=== PATIENT | male | born 1990 | race Caucasian/White ===

== ENCOUNTER 2017-01-30 17:08 | Emergency (ER) | payer SELFPAY ==
[~2017-01-30] VITALS: Ht 180.3 cm; Wt 72.6 kg
[2017-01-30] MEDS ORDERED: AMOX500C2 PO (17:22)
[2017-01-30] MEDS ORDERED: NAPR500T PO (17:22)
--- NOTE | 2017-01-30 17:22 | ED EENT ---
History of Present Illness General Stated Complaint: L SIDE DENTAL PAIN Source: patient Exam Limitations: no limitations History of Present Illness Time seen by provider: 17:19 Initial Comments To ER with left-sided upper dental pain at the site of one of his eroded teeth. States that he is from [facility] and is here looking for work. He did call [facility] today and has an appointment set up for this Monday the third with them. Timing/Duration: gradual Severity: moderate Location: mouth, dental Associated Symptoms: denies symptoms Allergies and Home Medications Allergies Coded Allergies: cephalexin (Verified Allergy, Unknown, 01/30/17) Review of Systems Constitutional: see HPI Eyes: No Symptoms Reported Ears: No Symptoms Reported Nose: no symptoms reported Mouth: see HPI Throat: no symptoms reported Respiratory: no symptoms reported Cardiovascular: no symptoms reported Musculoskeletal: no symptoms reported Skin: no symptoms reported Past Lbtqfjw-Lmafvn-Jznjur Hx Patient Social History Recent Foreign Travel: No Contact w/Someone Who Travel: No Physical Exam General Appearance: WD/WN, no apparent distress Eyes: bilateral eye EOMI, bilateral eye PERRL, bilateral eye normal inspection Ears: bilateral ear TM normal, bilateral ear auricle normal, bilateral ear canal normal Mouth/Throat: normal mouth inspection, pharynx normal, other (multiple eroded teeth but no fluctuant abscess) Neck: non-tender, full range of motion, No lymphadenopathy (R), No lymphadenopathy (L) Respiratory: no respiratory distress, no accessory muscle use Gastrointestinal: normal bowel sounds, non tender, soft Neurologic/Psychiatric: alert, normal mood/affect, oriented x 3 Skin: normal color, warm/dry Progress/Results/Core Measures Results/Orders My Orders Orders - RAGHAVENDRA VILLEGAS APRN Lidocaine 2% Viscous 15 Ml (Xylocaine Vi (01/30/17 17:30) Departure Impression Impression: Primary Impression: Dental caries Additional Impression: Pain, dental Disposition: HOME, SELF-CARE Condition: Stable Departure-Patient Inst. Decision time for Depature: 17:21 Referrals: NO,LOCAL PHYSICIAN (PCP/Family) Primary Care Physician Patient Instructions: Dental Pain Add. Discharge Instructions: 1. Keep your appointment with the dentist this Monday 2. Antibiotics and pain medication as directed until then. Scripts Amoxicillin (Amoxicillin) 500 Mg Capsule 500 MG PO TID, #21 CAP Prov: RAGHAVENDRA VILLEGAS APRN 01/30/17 Naproxen (Naprosyn) 500 Mg Tablet 500 MG PO BID Y for PAIN-MODERATE, #30 TAB Prov: RAGHAVENDRA VILLEGAS APRN 01/30/17 Images Mouth/Nose 1 - Caries, Tenderness RAGHAVENDRA VILLEGAS APRN January 30, 2017 17:22
[2017-01-30 17:27] VITALS: BP 133/83
[2017-01-30] MEDS ORDERED: LIDOCAINE 2% VISCOUS 15 ML UDC PO ONE (17:30)
== END 2017-01-30 17:27 | disposition home or self-care (01) ==
LOC: ER 17:12
DX: K02.9 Dental caries, unspecified (principal)
CPT/HCPCS: 99282

== ENCOUNTER 2017-02-13 00:01 | Emergency (ER) | payer SELFPAY ==
[~2017-02-13] VITALS: Ht 180.3 cm; Wt 72.6 kg
[~2017-02-13 00:01] MED LIST: AMOX500C2 PO; NAPR500T PO
--- NOTE | 2017-02-13 00:34 | ED Lower Extremity ---
General Chief Complaint: Lower Extremity Stated Complaint: RESTLESS LEG Nursing Triage Note: patient reports the past 2 nights he hasn't been able to sleep as his legs have been restless and tingling. patient reports that he is also out of his tramadol and he moved here 2 weeks ago from [place] [facility] Sepsis Screen: No Definite Risk Source: patient History of Present Illness Time seen by provider: 00:15 Initial Comments C/O "RESTLESS LEGS" X 2 NIGHTS AND CANT' SLEEP BECAUSE OF IT NO PAIN OR CRAMPING IN LEGS NO SWELLING IN LEGS STATES LEGS AND FEET OCCASIONALLY TINGLE, BUT NO MOTOR DEFICITS NO HISTORY OF SIMILAR PT STATES HE HAS BEEN TAKING TRAMADOL FOR HIS "CHRONIC BACK PAIN" BUT RAN OUT 3 DAYS AGO PT STATES HE JUST MOVED HERE 2 WEEKS AGO FROM [place], [place] WAS IN THIS ER 01/30/17 FOR DENTAL CARIES--GIVEN RX FOR AMOXIL AND NAPROXEN PT STATES HE CAME TO ER ALONE--HOWEVER, IT IS DISCOVERED THAT A FEMALE, ELMA STEARNS, WHO HAS THE SAME ADDRESS PT 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--CHECKED IN SHORTLY BEFORE THIS PT DID, AND SHE HAD C/O "ANXIETY" Allergies and Home Medications Allergies Coded Allergies: cephalexin (Verified Allergy, Unknown, 01/30/17) Home Medications No Active Prescriptions or Reported Meds Constitutional: no symptoms reported EENTM: no symptoms reported Respiratory: no symptoms reported Cardiovascular: no symptoms reported Gastrointestinal: no symptoms reported Genitourinary: no symptoms reported Musculoskeletal: see HPI Skin: no symptoms reported Psychiatric/Neurological: See HPI Past Urqpqyz-Fuxczt-Hutzdy Hx Patient Social History Alcohol Use: Denies Use Recreational Drug Use: No Smoking Status: Current Everyday Smoker Type Used: Cigarettes 2nd Hand Smoke Exposure: Yes Recent Foreign Travel: No Contact w/Someone Who Travel: No Recent Infectious Disease Expo: No Seasonal Allergies Seasonal Allergies: No Surgeries HX Surgeries: Yes (LEFT WRIST FX/ORIF; LEFT TESTICLE TORSION AND/OR VARICOCOELE REPAIR; BMT'S) Surgeries: Ear Surgery, Orthopedic, Testicular Respiratory Hx Respiratory Disorders: No Cardiovascular Hx Cardiac Disorders: No Neurological Hx Neurological Disorders: No Genitourinary Hx Genitourinary Disorders: No Gastrointestinal Hx Gastrointestinal Disorders: No Musculoskeletal Hx Musculoskeletal Disorders: Yes (PT STATES HE HAS "CHRONIC BACK PAIN" ) Musculoskeletal Disorders: Chronic Back Pain Endocrine Hx Endocrine Disorders: No HEENT HX ENT Disorders: Yes (DENTAL CARIES; 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 Cancer Hx Cancer: No Psychosocial Hx Psychiatric Problems: No Integumentary HX Skin/Integumentary Disorder: No Blood Transfusions Hx Blood Disorders: No Physical Exam Vital Signs Vital Sign - Last 12Hours 02/13/17 00:09 Temp 98.2 Pulse 92 Resp 18 B/P (MAP) 154/83 Pulse Ox 98 Capillary Refill : Less Than 3 Seconds General Appearance: WD/WN, no apparent distress, other (PT SITTING STILL ON ER CART) HEENT: PERRL/EOMI, other (DENTAL CARIES; TM'S SCLEROTIC) Neck: non-tender, full range of motion, supple, normal inspection Cardiovascular: normal peripheral pulses, regular rate, rhythm, no murmur Respiratory: normal breath sounds, no respiratory distress, no accessory muscle use Gastrointestinal: soft Legs: bilateral leg non-tender, bilateral leg normal inspection, bilateral leg normal range of motion Knees: bilateral knee normal inspection Ankles: bilateral ankle normal inspection Feet: bilateral foot normal inspection Reflexes: 2+ knee (R), 2+ knee (L) Neurologic/Tendon: normal sensation, normal motor functions, normal tendon functions 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 Referrals: NO,LOCAL PHYSICIAN (PCP/Family) Primary Care Physician Patient Instructions: Restless Legs Syndrome (DC) Add. Discharge Instructions: LOTS OF CLEAR LIQUIDS--WATER, BROTH, JELLO, GATORADE TYLENOL AND MOTRIN NEEDED FOR PAIN FOLLOW UP WITH DRAddison OF CHOICE IN 3-4 DAYS IF NO BETTER, AND ESTABLISH WITH LOCAL DR THIS WEEK All discharge instructions reviewed with patient and/or family. Voiced understanding. Scripts No Active Prescriptions or Reported Meds ADEILNA VANN DO February 13, 2017 00:34
[2017-02-13 00:38] VITALS: BP 154/83
[2017-02-13] MEDS ORDERED: hydrOXYzine (VISTARIL) 25 MG CAP PO ONE (00:45)
== END 2017-02-13 00:38 | disposition home or self-care (01) ==
LOC: EDUNIT# 00:01 → ER 00:05
DX: G25.81 Restless legs syndrome (principal); M54.5 Low back pain; F17.210 Nicotine dependence, cigarettes, uncomplicated; Z79.899 Other long term (current) drug therapy
CPT/HCPCS: 99283

== ENCOUNTER 2017-02-15 13:08 | Emergency (ER) | payer SELFPAY ==
[~2017-02-15] VITALS: Ht 172.7 cm; Wt 70.8 kg
--- NOTE | 2017-02-15 13:29 | ED Upper Extremity ---
General Chief Complaint: Upper Extremity Stated Complaint: R HAND PAIN/SWELLING Source: patient History of Present Illness Time seen by provider: 13:20 Initial Comments PT ARRIVES VIA POF C/O RIGHT HAND INJURY STATES HE WAS MOVING A [place] FOR A 4 BRADSHAW AND GOT RIGHT HAND CAUGHT BETWEEN EDGE OF RAMP AND TRAILER OCCURRED AROUND NOON TODAY NO PARESTHESIAS OR MOTOR DEFICITS PT IS RIGHT HANDED NO PRIOR INJURIES TO RIGHT HAND EXCEPT FOR STITCHES LAST TETANUS UNKNOWN NO PCP--JUST MOVED HERE 01/30/17 FROM [place], [place] THIS IS PT'S 3RD VISIT SINCE 01/30/17 FOR VARIOUS PAIN -RELATED COMPLAINTS PT CLAIMS TO HAVE "CHRONIC BACK PAIN" AND STATES HE "RAN OUT OF HIS TRAMADOL" JUST BEFORE HE MOVED HERE. Allergies and Home Medications Allergies Coded Allergies: cephalexin (Verified Allergy, Unknown, 01/30/17) Home Medications No Active Prescriptions or Reported Meds Constitutional: no symptoms reported Musculoskeletal: see HPI Skin: see HPI (MINOR ABRASION TO DORSUM OF RIGHT INDEX FINGER) Psychiatric/Neurological: No Symptoms Reported Past Ohgvtkd-Dnkcjs-Roxvrs Hx Patient Social History Alcohol Use: Denies Use Recreational Drug Use: No Smoking Status: Current Someday Smoker Type Used: Cigarettes 2nd Hand Smoke Exposure: Yes Recent Foreign Travel: No Contact w/Someone Who Travel: No Seasonal Allergies Seasonal Allergies: No Surgeries HX Surgeries: Yes (LEFT WRIST FX/ORIF; LEFT TESTICLE TORSION AND/OR VARICOCOELE REPAIR; BMT'S) Surgeries: Ear Surgery, Orthopedic, Testicular Respiratory Hx Respiratory Disorders: No Cardiovascular Hx Cardiac Disorders: No Neurological Hx Neurological Disorders: No Genitourinary Hx Genitourinary Disorders: No Gastrointestinal Hx Gastrointestinal Disorders: No Musculoskeletal Hx Musculoskeletal Disorders: Yes (PT STATES HE HAS "CHRONIC BACK PAIN" ) Musculoskeletal Disorders: Chronic Back Pain Endocrine Hx Endocrine Disorders: No HEENT HX ENT Disorders: Yes (DENTAL CARIES; 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 FULL ROM. MOTOR / SENSORY / VASCULAR INTACT. 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, no motor/sensory deficits, alert, normal mood/affect, oriented x 3 Skin: normal color, warm/dry, tattoos/piercings (TATTOOS) Progress/Results/Core Measures Results/Orders My Orders Orders - ADELINA VANN DO Hand, Right, 3 Views (02/15/17 13:22) Dipht,Pertuss(Acell),Tet Adult (Boostrix (02/15/17 13:30) Medications Given in ED Current Medications Medications Dose Ordered Sig/Ilda Route Start Time Stop Time Status Last Admin Dose Admin Diphtheria/ Tetanus/Acell Pertussis 0.5 ml ONCE ONCE IM 02/15/17 13:30 02/15/17 13:31 DC 02/15/17 13:33 0.5 ML Vital Signs/I&O Vital Sign - Last 12Hours 02/15/17 13:25 Temp 99.0 Pulse 104 Resp 18 B/P (MAP) Pulse Ox 98 O2 Delivery Room Air Diagnostic Imaging Comments XRAYS RIGHT HAND--NO ACUTE PROCESS, PER RADIOLOGIST REPORT AT 1355 Reviewed: Reviewed by Me Departure Impression Impression: Primary Impression: Contusion of right hand, initial encounter Additional Impressions: Abrasion of right index finger, initial encounter Ezpbsbchxt-tewprrbwx-ovfiydw (DPT) vaccination administered at current visit Disposition: 01 HOME, SELF-CARE Condition: Stable Departure-Patient Inst. Referrals: NO,LOCAL PHYSICIAN (PCP/Family) Primary Care Physician Patient Instructions: Contusion (DC), Diphtheria and Tetanus Toxoids, and Acellular Pertussis Vaccine, Skin Abrasions (DC), Wound Care (DC) Add. Discharge Instructions: ICE TO AREA AT 20 MINUTE INTERVALS ELEVATE HAND MUCH POSSIBLE ACTIVITIES TOLERATED TYLENOL 1 GRAM /MOTRIN 800 MG 4 TIMES A DAY FOR PAIN FOLLOW UP WITH OF BRINDA IN 1 WEEK IF NO BETTER All discharge instructions reviewed with patient and/or family. Voiced understanding. Scripts No Active Prescriptions or Reported Meds ADELINA VANN DO February 15, 2017 13:29
[2017-02-15] MEDS ORDERED: TETANUS,DIPTH,PERTUSS P/F (BOOSTRIX) 0.5 ML VIAL IM ONE (13:30)
--- NOTE | 2017-02-15 13:52 | Diagnostic Imaging Report ---
3 views of the right hand. INDICATION: Injury. FINDINGS: No fracture, dislocation or radiopaque foreign body is seen. There is a focal well corticated ossification seen measuring 3 mm near the ulnar styloid process, may relate to accessory ossicle or sequela of old injury. Joint alignment is satisfactory. IMPRESSION: No acute process. Dictated by: Dictated on workstation # [id number]
[2017-02-15 13:58] VITALS: BP 132/83
== END 2017-02-15 13:59 | disposition home or self-care (01) ==
LOC: EDUNIT# 13:08 → ER 13:11
DX: S60.221A Contusion of right hand, initial encounter (principal); S60.410A Abrasion of right index finger, initial encounter; Z23 Encounter for immunization; W23.0XXA Caught, crushed, jammed, or pinched between moving objects, initial encounter; Y99.8 Other external cause status
CPT/HCPCS: 73130; 90471; 90715; 99282